=== PATIENT | male | born 1985 | race African-American/Black ===

== ENCOUNTER → 2016-09-19 | Outpatient (CLI) | payer OTHER ==
[~2016-09-19] VITALS: Ht 177.8 cm; Wt 63.5 kg
[~2016-09-19] MED LIST: ADULT LOW DOSE81 MG PO; AMLODIPINE BESY10 MG PO; AMOXICILLIN875 MG PO; ANTIFUNGAL30 GM TOP; ARANESP 4040 MCG/0.4; ASPIR 8181 MG PO; CARVEDILOL12.5 MG PO; CELLCEPT500 MG PO; COUMADIN 2 MG TA2 M1 PO; DEEP SEA NASAL44 M1 NASAL; FERRLECIT62.5 MG/2 IV; FLONASE 0.05%50 MCG NASAL; HECTOROL2 MCG/1 ML; IBUPROFEN 200200 M1; LEVAQUIN 500 M500 M2 PO; LOPRESSOR PO; LOPRESSOR50 PO; MINOXIDIL2.5 MG PO; MUCINEX TA600 MG/TA2 PO; MYFORTIC PO; MYFORTIC180 MG PO; MYFORTIC360 MG PO; NEPHROCAPS SOFT1 CAP; NORVASC10 MG PO; NORVASC5 MG PO; PERCOCET 5-3251 EACH PO; PREDNISONE 5 MG5 M1 PO; PREDNISONE 5 MG5 MG PO; PRILOSEC 20 MG20 MG PO; PRO-STAT RENAL30 ML PO; PROGRAF1 MG PO; PROTONIX40 M1 PO; RENVELA800 MG PO; ROCALTROL0.5 MCG; TACROLIMUS1 MG PO; TUMS; VITAMIN B-12500 MCG PO; VITAMIN D1000 UNI1 PO; ZOFRAN ODT4 MG PO; ZOFRAN4 MG PO
[2016-09-19 10:24] VITALS: BP 100/61
[2016-09-19 13:53] VITALS: BP 100/61
== END | disposition home or self-care (01) ==
LOC: SPEC 09:52
DX: T82.868A Thrombosis due to vascular prosthetic devices, implants and grafts, initial encounter (principal); Y83.2 Surgical operation with anastomosis, bypass or graft as the cause of abnormal reaction of the patient, or of later complication, without mention of misadventure at the time of the procedure

== ENCOUNTER 2017-04-27 20:25 | Emergency (ER) | payer OTHER ==
[~2017-04-27] VITALS: Ht 180.3 cm; Wt 63.5 kg
--- NOTE | ~2017-04-27 | EKG ---
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
[~2017-04-27 20:25] MED LIST changes: +BUTALB-APAP-CA1 EACH PO; +COREG25 MG PO
[2017-04-27 21:07] LABS: ABSOLUTE NEUTROPHILS 3.5 thou/uL (1.4-8.2); BASOPHILS 0.5 % (0.0-2.0); HEMOGLOBIN 12.2 gm/dL (14.0-18.0); LYMPHOCYTES 39.3 % (24.0-44.0); MCH 33.8 pg (26.0-34.0); MCV 99.4 fL (80.0-100.0); MONOCYTES 7.2 % (1.0-8.0); PLATELET COUNT 120 thou/uL (150-400); RBC 3.62 mil/uL (4.50-6.00); RDW 15.8 % (10.5-14.5); WBC 7.1 thou/uL (4.0-11.0)
[2017-04-27 21:09] LABS: MANUAL DIFF NO
[2017-04-27 21:13] LABS: ANION GAP 15 mmol/L (7-16); BUN 67 mg/dL (7-18); CALCIUM 8.4 mg/dL (8.5-10.1); CHLORIDE 98 mmol/L (98-107); CO2 27 mmol/L (21-32); CREATININE 19.9 mg/dL (0.7-1.3); GLUCOSE 133 mg/dL (74-106); POTASSIUM 5.1 mmol/L (3.5-5.1); SODIUM 140 mmol/L (136-145)
[2017-04-27 21:22] LABS: ALBUMIN 3.8 g/dL (3.4-5.0); ALKALINE PHOSPHATASE 47 U/L (46-116); SGOT 35 U/L (15-37); SGPT 21 U/L (30-65); TOTAL BILIRUBIN 0.4 mg/dL (<0.1-1.0); TOTAL PROTEIN 7.7 g/dL (6.4-8.2); TROPONIN-I < 0.04 ng/mL (<0.04-0.07)
[2017-04-27] MEDS ORDERED: TRAMADOL 50 MG50 MG PO (22:56)
[2017-04-27] MEDS ORDERED: ZOFRAN ODT8 MG PO (22:56)
== END 2017-04-27 23:31 | disposition home or self-care (01) ==
LOC: ER 20:25
PROVIDERS: Emergency Medicine
DX: R11.2 Nausea with vomiting, unspecified (principal); R19.7 Diarrhea, unspecified; R10.30 Lower abdominal pain, unspecified; I12.0 Hypertensive chronic kidney disease with stage 5 chronic kidney disease or end stage renal disease; N18.6 End stage renal disease; E78.00 Pure hypercholesterolemia, unspecified; Z99.2 Dependence on renal dialysis; Z94.0 Kidney transplant status

== ENCOUNTER 2018-01-10 02:04 | Emergency (ER) | payer OTHER ==
[~2018-01-10] VITALS: Ht 177.8 cm; Wt 63.5 kg
--- NOTE | ~2018-01-10 | EKG ---
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
[~2018-01-10 02:04] MED LIST changes: +TRAMADOL 50 MG50 MG PO; +ZOFRAN ODT8 MG PO
[2018-01-10 02:55] LABS: ABSOLUTE NEUTROPHILS 6.2 thou/uL (1.4-8.2); BASOPHILS 0.8 % (0.0-2.0); EOSINOPHILS 6.8 % (0.0-3.0); HEMOGLOBIN 11.1 gm/dL (14.0-18.0); LYMPHOCYTES 25.4 % (24.0-44.0); MCH 33.8 pg (26.0-34.0); MCHC 33.5 g/dL (28.0-37.0); MCV 100.7 fL (80.0-100.0); MONOCYTES 6.8 % (1.0-8.0); PLATELET COUNT 123 thou/uL (150-400); POLYS 60.2 % (36.0-66.0); RBC 3.28 mil/uL (4.50-6.00); RDW 16.4 % (10.5-14.5); WBC 10.3 thou/uL (4.0-11.0)
[2018-01-10 03:03] LABS: ANION GAP 15 mmol/L (7-16); BUN 82 mg/dL (7-18); CHLORIDE 99 mmol/L (98-107); CO2 25 mmol/L (21-32); CREATININE 20.3 mg/dL (0.7-1.3); GLUCOSE 138 mg/dL (74-106); POTASSIUM 5.1 mmol/L (3.5-5.1); SODIUM 139 mmol/L (136-145)
[2018-01-10 03:10] LABS: TROPONIN-I < 0.04 ng/mL (<0.06)
== END 2018-01-10 03:26 | disposition left against medical advice (07) ==
LOC: ER 02:04
PROVIDERS: Emergency Medicine
DX: G43.909 Migraine, unspecified, not intractable, without status migrainosus (principal); R07.9 Chest pain, unspecified; I12.0 Hypertensive chronic kidney disease with stage 5 chronic kidney disease or end stage renal disease; N18.6 End stage renal disease; E78.5 Hyperlipidemia, unspecified; Z94.0 Kidney transplant status

== ENCOUNTER 2018-02-10 10:00 | Emergency (ER) | payer OTHER ==
[~2018-02-10] VITALS: Ht 177.8 cm; Wt 65.8 kg
[2018-02-10] MEDS ORDERED: NORVASC5 MG PO (10:14)
== END 2018-02-10 12:34 | disposition left against medical advice (07) ==
LOC: ER 10:00
DX: T82.318A Breakdown (mechanical) of other vascular grafts, initial encounter (principal); R06.02 Shortness of breath; I12.0 Hypertensive chronic kidney disease with stage 5 chronic kidney disease or end stage renal disease; N18.6 End stage renal disease; G43.909 Migraine, unspecified, not intractable, without status migrainosus; Z94.0 Kidney transplant status; Z99.2 Dependence on renal dialysis

== ENCOUNTER 2019-02-17 21:32 | Emergency (ER) | payer OTHER ==
[~2019-02-17] VITALS: Ht 177.8 cm; Wt 63.5 kg
[2019-02-17] MEDS ORDERED: LISINOPRIL10 MG PO (21:43)
[2019-02-17 23:17] LABS: ABSOLUTE NEUTROPHILS 4.2 thou/uL (1.4-8.2); EOSINOPHILS 7.8 % (0.0-3.0); HEMATOCRIT 37.6 % (42.0-52.0); HEMOGLOBIN 12.3 gm/dL (14.0-18.0); LYMPHOCYTES 27.9 % (24.0-44.0); MCH 31.2 pg (26.0-34.0); MCHC 32.7 g/dL (28.0-37.0); MCV 95.4 fL (80.0-100.0); MONOCYTES 8.6 % (1.0-8.0); PLATELET COUNT 213 thou/uL (150-400); POLYS 54.7 % (36.0-66.0); RBC 3.94 mil/uL (4.50-6.00); RDW 15.6 % (10.5-14.5); WBC 7.7 thou/uL (4.0-11.0)
[2019-02-17 23:24] LABS: CALCIUM 7.3 mg/dL (8.5-10.1); CREATININE 13.2 mg/dL (0.7-1.3); POTASSIUM 4.2 mmol/L (3.5-5.1)
[2019-02-18 01:00] VITALS: BP 149/106
== END 2019-02-18 01:00 | disposition home or self-care (01) ==
LOC: ER 21:32
PROVIDERS: Emergency Medicine
DX: F32.9 Major depressive disorder, single episode, unspecified (principal); I12.0 Hypertensive chronic kidney disease with stage 5 chronic kidney disease or end stage renal disease; N18.6 End stage renal disease; G43.909 Migraine, unspecified, not intractable, without status migrainosus; Z99.2 Dependence on renal dialysis; Z94.0 Kidney transplant status

== ENCOUNTER 2019-09-05 07:41 | Emergency (ER) | payer OTHER ==
[~2019-09-05] VITALS: Ht 177.8 cm; Wt 61.2 kg
[~2019-09-05 07:41] MED LIST changes: +LISINOPRIL10 MG PO
[2019-09-05] MEDS ORDERED: MINOXIDIL10 MG PO (08:23)
[2019-09-05] MEDS ORDERED: RENVELA0.8 GM PO (08:24)
[2019-09-05 08:30] LABS: ABSOLUTE NEUTROPHILS 3.1 thou/uL (1.4-8.2); BASOPHILS 0.6 % (0.0-2.0); EOSINOPHILS 14.9 % (0.0-3.0); HEMOGLOBIN 10.9 gm/dL (14.0-18.0); LYMPHOCYTES 31.5 % (24.0-44.0); MCH 32.8 pg (26.0-34.0); MCHC 32.9 g/dL (28.0-37.0); MCV 99.6 fL (80.0-100.0); PLATELET COUNT 190 thou/uL (150-400); RBC 3.32 mil/uL (4.50-6.00); RDW 17.5 % (10.5-14.5)
[2019-09-05 08:46] LABS: ANION GAP 15 mmol/L (7-16); BUN 68 mg/dL (7-18); CALCIUM 8.9 mg/dL (8.5-10.1); CHLORIDE 101 mmol/L (98-107); CO2 20 mmol/L (21-32); CREATININE 17.2 mg/dL (0.7-1.3); GLUCOSE 89 mg/dL (74-106); SODIUM 136 mmol/L (136-145)
[2019-09-05 08:56] LABS: TROPONIN-I <0.06 ng/mL (<0.06)
[2019-09-05 09:58] VITALS: BP 165/101
--- NOTE | 2019-09-05 12:03 | EKG ---
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1985 Requested By: Ap Turner Order Number: [id number] MD: Milton Ozuna Measurements Intervals [place] Rate: 64 P: -21 [place]: 140 QRS: 62 QRSD: 93 T: 38 QT: 435 QTc: 449 Interpretive Statements Sinus rhythm ST elev, probable normal early repol pattern Compared to ECG 01/10/2018 02:24:15 No significant change was found Electronically Signed On 09-05-2019 12:02:37 [employer]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
== END 2019-09-05 09:58 | disposition home or self-care (01) ==
LOC: ER 07:41
PROVIDERS: Emergency Medicine
DX: R07.9 Chest pain, unspecified (principal); I12.0 Hypertensive chronic kidney disease with stage 5 chronic kidney disease or end stage renal disease; G43.909 Migraine, unspecified, not intractable, without status migrainosus; N18.6 End stage renal disease; Z99.2 Dependence on renal dialysis